=== PATIENT | female | born 1990 | race Caucasian/White ===

== ENCOUNTER 2024-01-27 14:28 | Emergency (ER) | payer OTHER, BC ==
[~2024-01-27] VITALS: Ht 157.5 cm; Wt 81.6 kg
[2024-01-27 14:30] VITALS: BP_SYST 124; PULSE 80; RESP 18; TEMP 98.3; O2SAT 100
[2024-01-27] MEDS: ONDANSETRON 4 MG ODT TAB PO ONE (15:16)
[2024-01-27] MEDS: IBUPROFEN 800 MG TABLET PO ONE (15:23)
[2024-01-27] MEDS ORDERED: IBUP-1971 PO (16:14)
[2024-01-27] MEDS ORDERED: DICL20GE TP (16:14)
[2024-01-27] MEDS ORDERED: ONDA-8 TL (16:20)
== END 2024-01-27 16:25 | disposition home or self-care (01) ==
LOC: SED 14:28
DX: S16.1XXA Strain of muscle, fascia and tendon at neck level, initial encounter (principal); F07.81 Postconcussional syndrome; Z88.0 Allergy status to penicillin; V89.2XXA Person injured in unspecified motor-vehicle accident, traffic, initial encounter; Y93.89 Activity, other specified; Y92.89 Other specified places as the place of occurrence of the external cause; Y99.8 Other external cause status
CPT/HCPCS: 99284; 70450; 72040; 72100; 73030; 81025; Q0162